=== PATIENT | female | born 1995 ===

== ENCOUNTER 2019-12-27 18:47 | Inpatient (IN) | payer MEDICAID ==
[2019-12-27] MEDS ORDERED: Water For Irrigation,Sterile 1,000 ML Container IRR PRN (20:17)
[2019-12-27] MEDS ORDERED: Lidocaine 1% 50 ML MDV INJECT PRN (20:17)
[2019-12-27] MEDS ORDERED: Terbutaline 1 MG/ML SDV SUBCUT PRN (20:17)
[2019-12-27] MEDS ORDERED: Sodium Chloride 0.9% 10 ML SDV IV PRN (20:17)
[2019-12-27] MEDS ORDERED: Ondansetron 4 MG/2 ML SDV IVPUSH PRN (20:17)
[2019-12-27] MEDS ORDERED: Nalbuphine 10 MG/1 ML Vial IVPUSH PRN (20:17)
[2019-12-27] MEDS ORDERED: Butorphanol 1 MG/ML SDV IVPUSH PRN (20:17)
[2019-12-27] MEDS ORDERED: Carboprost Tromethamine 250 MCG/1 ML Amp IM PRN (20:17)
[2019-12-27] MEDS ORDERED: Misoprostol 25 MCG (1/4 of 100 MCG) Tab VAG PRN ×2 (20:17)
[2019-12-27] MEDS ORDERED: Methylergonovine 0.2 MG/1 ML Amp IM PRN (20:17)
[2019-12-27] MEDS ORDERED: Sodium Chloride 0.9% 10 ML Syringe FLUSH PRN (20:17)
[2019-12-27] MEDS ORDERED: Sodium Chloride 0.9% 2.5 ML Syringe FLUSH PRN (20:17)
[2019-12-27] MEDS ORDERED: Tranexamic Acid 1,000 MG in Sodium Chloride 0.9% 100 ML IV PRN (20:17)
[2019-12-27] MEDS ORDERED: Misoprostol 200 MCG Tab PO PRN (20:17)
[2019-12-27] MEDS ORDERED: Oxytocin/0.9 % Sodium Chloride 30 UNIT/500 ML BAG IV SCH ×2 (20:30)
[2019-12-28] MEDS ORDERED: fentaNYL 100 MCG/2 ML SDV ONE ×2 (04:46→16:57)
[2019-12-28] MEDS ORDERED: Ropivacaine HCl/PF 100 ML ONE ×2 (04:46→16:57)
--- NOTE | 2019-12-28 05:08 | PCM.PREANE ---
Preanesthetic Assessment - Anesthesia/Transfusion/Family Hx Anesthesia History: No Prior Anesthesia Family History of Anesthesia Reaction: No - Physical Assessment NPO Status Date: 12/28/19 NPO Status Time: 00:05 Height: 1.63 m Weight: 79.832 kg ASA Class: 1 - Lab Values: Laboratory Last Values WBC 8.30 K/uL (4.0-11.0) 12/27/19 21:01 RBC 4.43 M/uL (4.30-5.90) 12/27/19 21:01 Hgb 13.4 g/dL (12.0-16.0) 12/27/19 21:01 Hct 39.3 % (36.0-46.0) 12/27/19 21:01 MCV 88.7 fL (80.0-98.0) 12/27/19 21:01 MCH 30.2 pg (27.0-32.0) 12/27/19 21:01 MCHC 34.1 g/dL (31.0-37.0) 12/27/19 21:01 RDW Std Deviation 45.5 fl (28.0-62.0) 12/27/19 21:01 RDW Coeff of Marty 14 % (11.0-15.0) 12/27/19 21:01 Plt Count 210 K/uL (150-400) 12/27/19 21:01 MPV 11.10 fL (7.40-12.00) 12/27/19 21:01 Nucleated RBC % 0.0 /100WBC 12/27/19 21:01 Nucleated RBCs # 0 K/uL 12/27/19 21:01 Membrane Rupture POSITIVE 12/27/19 19:30 Blood Type O POSITIVE 12/27/19 21:01 Antibody Screen NEGATIVE 12/27/19 21:01 - Allergies Allergies/Adverse Reactions: Allergies Allergy/AdvReac Type Severity Reaction Status Date / Time No Known Allergies Allergy Verified 12/28/19 02:12 - Acknowledgements Anesthesia Type Planned: Epidural Pt an Appropriate Candidate for the Planned Anesthesia: Yes Alternatives and Risks of Anesthesia Discussed w Pt/Guardian: Yes Pt/Guardian Understands and Agrees with Anesthesia Plan: Yes PreAnesthesia Questionnaire COMMERCIAL AGENT History: Reports: - Past Surgical History HEENT Surgical History: Reports: Naso-Sinus Surgery - CURRENT (IN HOUSE) MEDS Current Meds: Current Medications Butorphanol Tartrate (Stadol) 1 mg IVPUSH Q1H PRN PRN Reason: Pain Last Admin: 12/28/19 04:16 Dose: 1 mg Carboprost Tromethamine (Hemabate Ds) 250 mcg IM ASDIRECTED PRN PRN Reason: Post Hemorrhage Tranexamic Acid 1,000 mg/ (Sodium Chloride) 110 mls @ 660 mls/hr IV ONETIME PRN PRN Reason: Bleeding Lactated Ringer's (Ringers, Lactated) 1,000 mls @ 150 mls/hr IV ASDIRECTED DEMETRA Oxytocin/Sodium Chloride (Oxytocin 30 Unit/500 Ml-Ns) 30 unit in 500 mls @ 555 mls/hr IV TITRATE DEMETRA Oxytocin/Sodium Chloride (Oxytocin 30 Unit/500 Ml-Ns) 30 unit in 500 mls @ 2 mls/hr IV TITRATE DEMETRA; Protocol Last Titration: 12/28/19 04:19 Dose: 2 munits/min, 2 mls/hr Lidocaine HCl (Xylocaine 1%) 50 ml INJECT ONETIME PRN PRN Reason: Laceration repair Methylergonovine Maleate (Methergine) 0.2 mg IM ASDIRECTED PRN PRN Reason: Post Hemorrhage Misoprostol (Cytotec) 200 mcg PO ONETIME PRN PRN Reason: Post Hemorrhage Misoprostol (Cytotec) 25 mcg VAG ONETIME PRN PRN Reason: Cervical Ripening Last Admin: 12/27/19 23:04 Dose: 25 mcg Misoprostol (Cytotec) 25 mcg VAG Q4H PRN PRN Reason: Cervical Ripening Nalbuphine HCl (Nubain) 10 mg IVPUSH Q1H PRN PRN Reason: Pain (severe 7-10) Ondansetron HCl (Zofran) 4 mg IVPUSH Q4H PRN PRN Reason: Nausea/Vomiting Sodium Chloride (Saline Flush) 10 ml FLUSH ASDIRECTED PRN PRN Reason: Keep Vein Open Sodium Chloride (Saline Flush) 2.5 ml FLUSH ASDIRECTED PRN PRN Reason: Keep Vein Open Sodium Chloride (Normal Saline) 10 ml IV ASDIRECTED PRN PRN Reason: IV Use Sterile Water (Sterile Water For Irrigation) 1,000 ml IRR ASDIRECTED PRN PRN Reason: delivery Terbutaline Sulfate (Brethine) 0.25 mg SUBCUT ASDIRECTED PRN PRN Reason: Tacysystole Discontinued Medications Fentanyl (Sublimaze) Confirm Administered Dose 100 mcg .ROUTE .[employer] ONE Stop: 12/28/19 04:47 Ropivacaine (Naropin 0.2%) Confirm Administered Dose 100 mls @ as directed .ROUTE .[employer] USAMED ONE Stop: 12/28/19 04:47
--- NOTE | 2019-12-28 05:12 | PCM.PRNOTE ---
- Free Text/Narrative Note: Anes Note Patient requests epidural for L&D. Sitting position, level L3-L4 midline apporach. Chloraprep scrub to lumbar area. Sterile fenestrated drape applie. Epidural space easily achieved singel attempt with ease. DOLORES at 3 cm. Cath threaded 5 cm with ease. Cath secured at skin at 9 cm using sterile clear adhesive dressing/ 0450 test 3 cc 1.5% lido with epi negative. 0455 Load 10 cc 0.2% ropiv with 1 mcg cc fentanyl in slow divided doses. 0500 Pump started with 90 cc same solution. Rate is 8 cc hr with 6 cc q 20 min prn bolus. Renetta well. Time with patient [id number] Lars Martines COPYIST
[2019-12-28] MEDS ORDERED: Sodium Chloride 0.9% 1,000 ML IV ONE (08:40)
[2019-12-28] MEDS: Lactated Ringers 1,000 ML IV SCH ×2 (09:02→14:11)
--- NOTE | 2019-12-28 17:09 | PCM.SN.2 ---
- Free Text/Narrative Note: Called to OB for empty Epidural Bag. Pt starting to feel contractions. 0.2% Naropin 5ml + 100 mcg fentanyl added given bolus. Infusion restarted at previous rate. Pain improving.
[2019-12-28] MEDS ORDERED: oxyCODONE 5 MG Tab PO PRN (19:54)
[2019-12-28] MEDS ORDERED: Docusate Sodium 100 MG Cap PO PRN (19:54)
[2019-12-28] MEDS ORDERED: Bisacodyl 10 MG Supp RECTAL PRN (19:54)
[2019-12-28] MEDS ORDERED: Acetaminophen 500 MG Tab PO PRN ×2 (19:54)
[2019-12-28] MEDS ORDERED: Witch Hazel Medicated Pads 40/Jar TOP PRN (19:54)
[2019-12-28] MEDS ORDERED: Benzocaine/Menthol 20%-0.5% Spray 78 GM Cannister TOP PRN (19:54)
[2019-12-28] MEDS ORDERED: Lanolin 100% Cream 7 GM Tube TOP PRN (19:54)
[2019-12-28] MEDS ORDERED: Ibuprofen 400 MG Tab PO PRN (19:54)
--- NOTE | 2019-12-28 19:59 | PCM.DEL ---
L & D Note - General Info Date of Service: 12/28/19 - Delivery Note Labor: Augmented by Oxytocin Delivery Outcome: Livebirth Delivery Method: Spontaneous Vaginal Delivery-Single Presentation: Left Occiput Anterior (ASCENCION) Nuchal Cord: Present Anesthesia Type: Epidural Anesthetic: Lidocaine (Xylocaine) 1% Plain Amniotic Fluid Description: Meconium Stained Episiotomy Type: None Laceration: 1st Degree Suture type: Other (monocryl) Suture size: 2-0 Placenta: Spontaneous Cord: 3 Vessels Estimated Blood Loss: 300 Resuscitation Needed: No Score 1 min: 8 Score 5 min: 9 Delivery Comments (Free Text/Narrative):: Live female delivered at 708pm, weight 3030g , 8/9 - General Info Date of Service: 12/28/19 - Patient Data Weight - Most Recent: 79.832 kg Lab Results Last 24 Hours: Laboratory Results - last 24 hr 12/27/19 12/27/19 Range/Units 21:01 21:01 WBC 8.30 (4.0-11.0) K/uL RBC 4.43 (4.30-5.90) M/uL Hgb 13.4 (12.0-16.0) g/dL Hct 39.3 (36.0-46.0) % MCV 88.7 (80.0-98.0) fL MCH 30.2 (27.0-32.0) pg MCHC 34.1 (31.0-37.0) g/dL RDW Std Deviation 45.5 (28.0-62.0) fl RDW Coeff of Marty 14 (11.0-15.0) % Plt Count 210 (150-400) K/uL MPV 11.10 (7.40-12.00) fL Nucleated RBC % 0.0 /100WBC Nucleated RBCs # 0 K/uL Blood Type O POSITIVE Antibody Screen NEGATIVE Med Orders - Current: Current Medications Acetaminophen (Tylenol Extra Strength) 500 mg PO Q4H PRN PRN Reason: Pain Acetaminophen (Tylenol Extra Strength) 1,000 mg PO Q4H PRN PRN Reason: Pain Benzocaine/Menthol (Dermoplast Pain Relief 20%-0.5% [place]) 78 gm TOP ASDIRECTED PRN PRN Reason: Perineal Comfort Measure Bisacodyl (Dulcolax) 10 mg RECTAL ONETIME PRN PRN Reason: Constipation Butorphanol Tartrate (Stadol) 1 mg IVPUSH Q1H PRN PRN Reason: Pain Last Admin: 12/28/19 04:16 Dose: 1 mg Carboprost Tromethamine (Hemabate Ds) 250 mcg IM ASDIRECTED PRN PRN Reason: Post Hemorrhage Docusate Sodium (Colace) 100 mg PO BID PRN PRN Reason: Constipation Emollient Ointment (Lansinoh Hpa) 0 gm TOP ASDIRECTED PRN PRN Reason: Sore Nipples Tranexamic Acid 1,000 mg/ (Sodium Chloride) 110 mls @ 660 mls/hr IV ONETIME PRN PRN Reason: Bleeding Lactated Ringer's (Ringers, Lactated) 1,000 mls @ 150 mls/hr IV ASDIRECTED DEMETRA Last Admin: 12/28/19 14:11 Dose: 150 mls/hr Oxytocin/Sodium Chloride (Oxytocin 30 Unit/500 Ml-Ns) 30 unit in 500 mls @ 555 mls/hr IV TITRATE DEMETRA Oxytocin/Sodium Chloride (Oxytocin 30 Unit/500 Ml-Ns) 30 unit in 500 mls @ 2 mls/hr IV TITRATE DEMETRA; Protocol Last Titration: 12/28/19 18:55 Dose: 8 munits/min, 8 mls/hr Ibuprofen (Motrin) 400 mg PO Q4H PRN PRN Reason: Pain Ibuprofen (Motrin) 800 mg PO Q6H PRN PRN Reason: Pain Lidocaine HCl (Xylocaine 1%) 50 ml INJECT ONETIME PRN PRN Reason: Laceration repair Methylergonovine Maleate (Methergine) 0.2 mg IM ASDIRECTED PRN PRN Reason: Post Hemorrhage Misoprostol (Cytotec) 200 mcg PO ONETIME PRN PRN Reason: Post Hemorrhage Misoprostol (Cytotec) 25 mcg VAG ONETIME PRN PRN Reason: Cervical Ripening Last Admin: 12/27/19 23:04 Dose: 25 mcg Misoprostol (Cytotec) 25 mcg VAG Q4H PRN PRN Reason: Cervical Ripening Nalbuphine HCl (Nubain) 10 mg IVPUSH Q1H PRN PRN Reason: Pain (severe 7-10) Ondansetron HCl (Zofran) 4 mg IVPUSH Q4H PRN PRN Reason: Nausea/Vomiting Oxycodone HCl (Oxycodone) 5 mg PO Q2H PRN PRN Reason: Pain Sodium Chloride (Saline Flush) 10 ml FLUSH ASDIRECTED PRN PRN Reason: Keep Vein Open Sodium Chloride (Saline Flush) 2.5 ml FLUSH ASDIRECTED PRN PRN Reason: Keep Vein Open Sodium Chloride (Normal Saline) 10 ml IV ASDIRECTED PRN PRN Reason: IV Use Sterile Water (Sterile Water For Irrigation) 1,000 ml IRR ASDIRECTED PRN PRN Reason: delivery Terbutaline Sulfate (Brethine) 0.25 mg SUBCUT ASDIRECTED PRN PRN Reason: Tacysystole Witch Yaneth (Tucks) 1 pad TOP ASDIRECTED PRN PRN Reason: comfort care Discontinued Medications Fentanyl (Sublimaze) Confirm Administered Dose 100 mcg .ROUTE .STK-MED ONE Stop: 12/28/19 04:47 Last Admin: 12/28/19 07:27 Dose: Not Given Fentanyl (Sublimaze) Confirm Administered Dose 100 mcg .ROUTE .STK-MED ONE Stop: 12/28/19 16:58 Last Admin: 12/28/19 17:08 Dose: Not Given Ropivacaine (Naropin 0.2%) Confirm Administered Dose 100 mls @ as directed .ROUTE .STK-MED ONE Stop: 12/28/19 04:47 Last Admin: 12/28/19 07:27 Dose: Not Given Sodium Chloride (Normal Saline) 1,000 mls @ 300 mls/hr IV .BOLUS ONE Stop: 12/28/19 11:59 Last Admin: 12/28/19 08:42 Dose: 300 mls/hr Ropivacaine (Naropin 0.2%) Confirm Administered Dose 100 mls @ as directed .ROUTE .STK-MED ONE Stop: 12/28/19 16:58 Last Admin: 12/28/19 17:08 Dose: Not Given - Problem List & Annotations (1) Vaginal delivery SNOMED Code(s): 986734010 Code(s): O80 - ENCOUNTER FOR FULL-TERM UNCOMPLICATED DELIVERY Status: Acute Current Visit: Yes - Problem List Review Problem List Initiated/Reviewed/Updated: Yes - My Orders Last 24 Hours: My Active Orders 12/28/19 19:54 Acetaminophen [Tylenol Extra Strength] 1,000 mg PO Q4H PRN Acetaminophen [Tylenol Extra Strength] 500 mg PO Q4H PRN Benzocaine/Menthol [Dermoplast Pain Relief 20%-0.5% [place]] 78 gm TOP ASDIRECTED PRN Docusate Sodium [Colace] 100 mg PO BID PRN Ibuprofen [Motrin] 400 mg PO Q4H PRN Ibuprofen [Motrin] 800 mg PO Q6H PRN Lanolin [Lansinoh HPA] See Dose Instructions TOP ASDIRECTED PRN bisacodyL [Dulcolax] 10 mg RECTAL ONETIME PRN oxyCODONE 5 mg PO Q2H PRN witch Yaneth [Tucks] 1 pad TOP ASDIRECTED PRN 12/28/19 19:55 May Shower [RC] ASDIRECTED Up ad Kelly [RC] ASDIRECTED Vital Signs [RC] PER UNIT ROUTINE Assess Lochia [WOMSER] Per Unit Routine Assess Uterine Involution [WOMSER] Per Unit Routine Peripheral IV Discontinue [OM.PC] Routine 12/29/19 05:11 HEMOGLOBIN/HEMATOCRIT,HH [HEME] Timed
[2019-12-29] MEDS: Ibuprofen 800 MG Tab PO PRN ×2 (01:29→13:11)
--- NOTE | 2019-12-29 09:15 | PCM48HPAN ---
Post Anesthesia Note - EVALUATION WITHIN 48HRS OF ANESTHETIC Vital Signs in Normal Range: Yes Patient Participated in Evaluation: Yes Respiratory Function Stable: Yes Airway Patent: Yes Cardiovascular Function Stable: Yes Hydration Status Stable: Yes Pain Control Satisfactory: Yes Nausea and Vomiting Control Satisfactory: Yes Mental Status Recovered: Yes Vital Signs: Last Vital Signs Temp 36.1 C 12/29/19 03:51 Pulse 61 12/29/19 03:51 Resp 18 12/29/19 03:51 BP 106/63 12/29/19 03:51 Pulse Ox 99 12/29/19 03:51
--- NOTE | 2019-12-29 11:20 | OR ---
SURGEON: POLLY HANLEY DATE OF PROCEDURE: 12/28/2019 PREOPERATIVE DIAGNOSIS: A 24-year-old, G2, P0-0-1-0, at 40 weeks and 1 day, admitted in labor for pre- labor rupture of membranes. POSTOPERATIVE DIAGNOSES: A 24-year-old, G2, P0-0-1-0, at 40 weeks and 1 day, admitted in labor for pre- labor rupture of membranes and first-degree laceration. ESTIMATED BLOOD LOSS: 300. IV FLUIDS: Pitocin running. NOTES AND FINDINGS: A live female delivered at 7:08 p.m. score is 8 and 9. Weight is 3030 g. PROCEDURES: Normal spontaneous vaginal delivery and repair of first-degree labial laceration. BRIEF HISTORY: A 24-year-old, G2, P0-0-1-0, at 40 weeks and 1 day, who came in complaining of leakage of fluid. She was ruled in for rupture. So as a result, she was about close. She got some Cytotec. After Cytotec, she received Pitocin. She made change to about 4 cm dilated. She was having some episodes of category 2 heart tracing, so an IUPC was placed. She was placed in left lateral on oxygen. She had a normal labor course. She became fully dilated. With the patient being fully dilated, she was encouraged to push. DESCRIPTION OF PROCEDURE: With good pushing effort, she delivered the head subsequently by the anterior and posterior shoulder. Body of the infant was delivered. Infant was placed on maternal abdomen. Delayed cord clamping was observed. Cord was clamped and cut. Cord blood gases were obtained. The placenta was delivered via controlled cord traction. The perineum was inspected. A third-degree labial laceration was noted, which was repaired with 2-0 Monocryl. After injection of local anesthetic, bimanual massage was done. Uterus was noted to be firm. IV Pitocin was running. Noted that there was cord around the neck and body of the baby, which was delivered immediately after delivery. Hemostasis was noted after the procedure. The patient was left in Labor and Delivery room in stable condition. BRANDON HANNA /[id number] [facility] MEDICAL CENTERDotty
--- NOTE | 2019-12-29 12:44 | PCM.PNPP ---
- General Info Date of Service: 12/29/19 Functional Status: Reports: Pain Controlled, Tolerating Diet, Ambulating, Urinating - Review of Systems General: Reports: No Symptoms HEENT: Reports: No Symptoms Pulmonary: Reports: No Symptoms Cardiovascular: Reports: No Symptoms Gastrointestinal: Reports: No Symptoms Genitourinary: Reports: No Symptoms Musculoskeletal: Reports: No Symptoms Skin: Reports: No Symptoms Neurological: Reports: No Symptoms Psychiatric: Reports: No Symptoms - General Info Date of Service: 12/29/19 - Patient Data Vital Signs - Most Recent: Last Vital Signs Temp 36.2 C 12/29/19 09:27 Pulse 64 12/29/19 09:27 Resp 18 12/29/19 09:27 BP 97/51 L 12/29/19 09:27 Pulse Ox 98 12/29/19 09:27 Weight - Most Recent: 79.832 kg Lab Results - Last 24 Hours: Laboratory Results - last 24 hr 12/27/19 12/29/19 Range/Units 21:01 05:53 Hgb 11.8 L (12.0-16.0) g/dL Hct 36.1 (36.0-46.0) % RPR Non-Reac (Non-Reac) Med Orders - Current: Current Medications Acetaminophen (Tylenol Extra Strength) 500 mg PO Q4H PRN PRN Reason: Pain Acetaminophen (Tylenol Extra Strength) 1,000 mg PO Q4H PRN PRN Reason: Pain Last Admin: 12/29/19 06:37 Dose: 1,000 mg Benzocaine/Menthol (Dermoplast Pain Relief 20%-0.5% Rescue) 78 gm TOP ASDIRECTED PRN PRN Reason: Perineal Comfort Measure Last Admin: 12/28/19 21:34 Dose: 1 canister Bisacodyl (Dulcolax) 10 mg RECTAL ONETIME PRN PRN Reason: Constipation Butorphanol Tartrate (Stadol) 1 mg IVPUSH Q1H PRN PRN Reason: Pain Last Admin: 12/28/19 04:16 Dose: 1 mg Carboprost Tromethamine (Hemabate Ds) 250 mcg IM ASDIRECTED PRN PRN Reason: Post Hemorrhage Docusate Sodium (Colace) 100 mg PO BID PRN PRN Reason: Constipation Emollient Ointment (Lansinoh Hpa) 0 gm TOP ASDIRECTED PRN PRN Reason: Sore Nipples Tranexamic Acid 1,000 mg/ (Sodium Chloride) 110 mls @ 660 mls/hr IV ONETIME PRN PRN Reason: Bleeding Lactated Ringer's (Ringers, Lactated) 1,000 mls @ 150 mls/hr IV ASDIRECTED DEMETRA Last Admin: 12/28/19 14:11 Dose: 150 mls/hr Oxytocin/Sodium Chloride (Oxytocin 30 Unit/500 Ml-Ns) 30 unit in 500 mls @ 555 mls/hr IV TITRATE DEMETRA Oxytocin/Sodium Chloride (Oxytocin 30 Unit/500 Ml-Ns) 30 unit in 500 mls @ 2 mls/hr IV TITRATE DEMETRA; Protocol Last Titration: 12/28/19 19:10 Dose: 500 munits/min, 500 mls/hr Ibuprofen (Motrin) 400 mg PO Q4H PRN PRN Reason: Pain Ibuprofen (Motrin) 800 mg PO Q6H PRN PRN Reason: Pain Last Admin: 12/29/19 01:29 Dose: 800 mg Lidocaine HCl (Xylocaine 1%) 50 ml INJECT ONETIME PRN PRN Reason: Laceration repair Last Admin: 12/28/19 19:15 Dose: 10 ml Methylergonovine Maleate (Methergine) 0.2 mg IM ASDIRECTED PRN PRN Reason: Post Hemorrhage Misoprostol (Cytotec) 200 mcg PO ONETIME PRN PRN Reason: Post Hemorrhage Misoprostol (Cytotec) 25 mcg VAG ONETIME PRN PRN Reason: Cervical Ripening Last Admin: 12/27/19 23:04 Dose: 25 mcg Misoprostol (Cytotec) 25 mcg VAG Q4H PRN PRN Reason: Cervical Ripening Nalbuphine HCl (Nubain) 10 mg IVPUSH Q1H PRN PRN Reason: Pain (severe 7-10) Ondansetron HCl (Zofran) 4 mg IVPUSH Q4H PRN PRN Reason: Nausea/Vomiting Oxycodone HCl (Oxycodone) 5 mg PO Q2H PRN PRN Reason: Pain Last Admin: 12/29/19 02:31 Dose: 5 mg Sodium Chloride (Saline Flush) 10 ml FLUSH ASDIRECTED PRN PRN Reason: Keep Vein Open Sodium Chloride (Saline Flush) 2.5 ml FLUSH ASDIRECTED PRN PRN Reason: Keep Vein Open Sodium Chloride (Normal Saline) 10 ml IV ASDIRECTED PRN PRN Reason: IV Use Sterile Water (Sterile Water For Irrigation) 1,000 ml IRR ASDIRECTED PRN PRN Reason: delivery Terbutaline Sulfate (Brethine) 0.25 mg SUBCUT ASDIRECTED PRN PRN Reason: Tacysystole Witch [place] (Tucks) 1 pad TOP ASDIRECTED PRN PRN Reason: comfort care Last Admin: 12/28/19 21:33 Dose: 1 container Discontinued Medications Fentanyl (Sublimaze) Confirm Administered Dose 100 mcg .ROUTE .STK-MED ONE Stop: 12/28/19 04:47 Last Admin: 12/28/19 07:27 Dose: Not Given Fentanyl (Sublimaze) Confirm Administered Dose 100 mcg .ROUTE .STK-MED ONE Stop: 12/28/19 16:58 Last Admin: 12/28/19 17:08 Dose: Not Given Ropivacaine (Naropin 0.2%) Confirm Administered Dose 100 mls @ as directed .ROUTE .STK-MED ONE Stop: 12/28/19 04:47 Last Admin: 12/28/19 07:27 Dose: Not Given Sodium Chloride (Normal Saline) 1,000 mls @ 300 mls/hr IV .BOLUS ONE Stop: 12/28/19 11:59 Last Admin: 12/28/19 08:42 Dose: 300 mls/hr Ropivacaine (Naropin 0.2%) Confirm Administered Dose 100 mls @ as directed .ROUTE .STK-MED ONE Stop: 12/28/19 16:58 Last Admin: 12/28/19 17:08 Dose: Not Given - Infant Interaction Support Person: Significant Other - Recovery Exam Fundal Tone: Firm Fundal Level: 1 Fingerbreadths Below Umbilicus Fundal Placement: Midline Lochia Amount: Scant Lochia Color: Rubra/Red Perineum Description: Other (see below) Other Perinuem Description: 1st degree laceration Episiotomy/Laceration: Approximated Bladder Status: Voiding - Exam General: Alert HEENT: Pupils Equal Neck: Supple Lungs: Clear to Auscultation Cardiovascular: Regular Rate, Regular Rhythm GI/Abdominal Exam: Normal Bowel Sounds Extremities: Normal Inspection Neurological: No New Focal Deficit Psy/Mental Status: Alert - Problem List & Annotations (1) Vaginal delivery SNOMED Code(s): 526047383 Code(s): O80 - ENCOUNTER FOR FULL-TERM UNCOMPLICATED DELIVERY Status: Acute Current Visit: Yes - Problem List Review Problem List Initiated/Reviewed/Updated: Yes - My Orders Last 24 Hours: My Active Orders 12/28/19 18:00 Admission Status [Patient Status] [ADT] Routine 12/28/19 19:54 Acetaminophen [Tylenol Extra Strength] 1,000 mg PO Q4H PRN Acetaminophen [Tylenol Extra Strength] 500 mg PO Q4H PRN Benzocaine/Menthol [Dermoplast Pain Relief 20%-0.5% Rescue] 78 gm TOP ASDIRECTED PRN Docusate Sodium [Colace] 100 mg PO BID PRN Ibuprofen [Motrin] 400 mg PO Q4H PRN Ibuprofen [Motrin] 800 mg PO Q6H PRN Lanolin [Lansinoh HPA] See Dose Instructions TOP ASDIRECTED PRN bisacodyL [Dulcolax] 10 mg RECTAL ONETIME PRN oxyCODONE 5 mg PO Q2H PRN witch [place]ton [Tucks] 1 pad TOP ASDIRECTED PRN 12/28/19 19:55 May Shower [RC] ASDIRECTED Up ad Kelly [RC] ASDIRECTED Vital Signs [RC] PER UNIT ROUTINE Assess Lochia [WOMSER] Per Unit Routine Assess Uterine Involution [WOMSER] Per Unit Routine Peripheral IV Discontinue [OM.PC] Routine - Assessment Assessment:: 24yo P1 s/p PPD1 Normal lochia - Plan Plan:: Discharge home Pain control as needed
== END 2019-12-29 22:53 | disposition home or self-care (01) | DRG 807 ==
LOC: MW.OBCHECK 18:47 → MW.OB 18:49 → MW.OBCHECK 20:17 → MW.OB 21:41 → OBSVTOIN 12-28 19:08 → MW.OB 12-28 20:00
PROVIDERS: ADMIT Obstetrics & Gynecology; ATTEND Obstetrics & Gynecology
PROC: 10E0XZZ Delivery of Products of Conception, External Approach (ICD-10-PCS; principal; 2019-12-28)
PROC: 3E0P7VZ Introduction of Hormone into Female Reproductive, Via Natural or Artificial Opening (ICD-10-PCS; 2019-12-28)
PROC: 3E033VJ Introduction of Other Hormone into Peripheral Vein, Percutaneous Approach (ICD-10-PCS; 2019-12-28)
PROC: 0HQ9XZZ Repair Perineum Skin, External Approach (ICD-10-PCS; 2019-12-28)
PROC: 10H07YZ Insertion of Other Device into Products of Conception, Via Natural or Artificial Opening (ICD-10-PCS; 2019-12-28)
PROC: 3E0R3BZ Introduction of Anesthetic Agent into Spinal Canal, Percutaneous Approach (ICD-10-PCS; 2019-12-28)
PROC: 00HU33Z Insertion of Infusion Device into Spinal Canal, Percutaneous Approach (ICD-10-PCS; 2019-12-28)
PROC: 10907ZC Drainage of Amniotic Fluid, Therapeutic from Products of Conception, Via Natural or Artificial Opening (ICD-10-PCS; 2019-12-28)
DX: O48.0 Post-term pregnancy (principal); Z37.0 Single live birth; Z3A.40 40 weeks gestation of pregnancy; O70.0 First degree perineal laceration during delivery
CPT/HCPCS: 01967; 36415; 51702; 59025; 59409; 84112; 85014; 85018; 85027; 86592; 86593; 86850; 86900; 86901; A9270-GY; J0595; J2001; J2590; J7030; J7120